=== PATIENT | male | born 1960 | race Hispanic/Latino ===

== ENCOUNTER 2018-08-02 10:05 | Outpatient (CLI) | payer OTHER ==
--- NOTE | 2018-08-02 14:58 | RAD ---
LEFT KNEE 4 VIEWS: DATE: 08/02/2018. FINDINGS: A large joint effusion is present. No fracture or dislocation was seen. The patella may be subluxed slightly laterally, but it is difficult to tell if this is the case or if the knee was just turned l ikely. There is some minor medial joint space narrowing. The articular surfaces of the knee joint a ppears normal. IMPRESSION: Joint effusion. POS: HOME
== END 2018-08-02 10:06 | disposition home or self-care (01) ==
LOC: BURRAD 10:05
PROVIDERS: ATTEND Family Medicine
DX: M25.562 Pain in left knee (principal); G89.29 Other chronic pain; M25.462 Effusion, left knee